=== PATIENT | male | born 1945 | race African-American/Black ===

== ENCOUNTER 2021-01-25 13:30 | Inpatient (IN) | payer MEDICARE, MEDICAID ==
[~2021-01-25] VITALS: Ht 172.7 cm; Wt 84.0 kg
[2021-01-25 14:40] LABS: HEMATOCRIT. 48.5 % (42.0-52.0); HEMOGLOBIN. 15.6 g/dL (14.0-18.0); MEAN CORPUSCULAR HEMOGLOBIN 28.2 pg (28.0-32.0); MEAN PLATELET VOLUME 8.6 fl (7.4-10.4); PLATELET 213 x1000/uL (130-400); RED BLOOD CELL COUNT 5.52 mill/uL (4.7-6.1); RED CELL DISTRIBUTION WIDTH 15.5 % (11.6-14.6)
[2021-01-25 14:46] LABS: CHLORIDE 108 mEq/L (98-107)
[2021-01-25 15:13] LABS: CREATINE KINASE 2217 IU/L (39-308)
[2021-01-25 15:35] LABS: PLATELET ESTIMATE NORMAL
[2021-01-25 15:37] LABS: INR 1.2; PROTHROMBIN TIME 12.4 sec (9.6-11.0)
[2021-01-25] MEDS ORDERED: SODIUM CHLORIDE 0.9% 1,000 ML IV ONE (16:15)
[2021-01-25] MEDS ORDERED: IOHEXOL-300 100 ML BOTTLE ONE (17:02)
[2021-01-25] MEDS ORDERED: MAGNESIUM/ALUMINUM HYDROXIDE/SIMETHICONE 30ML UDC PO PRN (18:45)
[2021-01-25] MEDS ORDERED: ZOLPIDEM TARTRATE 5MG TABLET PO PRN (18:45)
[2021-01-25] MEDS ORDERED: IPRATROPIUM/ALBUTEROL 0.5-3(2.5)MG/3ML NEB NEB PRN (18:45)
[2021-01-25] MEDS ORDERED: NITROGLYCERIN 0.4MG TABLET SL SL PRN (18:45)
[2021-01-25] MEDS ORDERED: GUAIFENESIN 200MG/10ML SUGAR FREE UDC PO PRN (18:45)
[2021-01-25] MEDS ORDERED: ACETAMINOPHEN 325MG TABLET PO PRN (18:45)
[2021-01-25] MEDS ORDERED: DOCUSATE SODIUM 100MG CAPSULE PO PRN (18:45)
[2021-01-25] MEDS ORDERED: NA PHOS,M-B/NA PHOS,DI-BA ENEMA 118ML PR PRN (18:45)
[2021-01-25 19:21] LABS: CLARITY URINE CLEAR (CLEAR); COLOR URINE YELLOW (YELLOW); KETONES URINE 3+ (NEGATIVE); LEUKOCYTE ESTERASE URINE NEGATIVE (NEGATIVE); NITRITE URINE NEGATIVE (NEGATIVE); OCCULT BLOOD URINE 2+ (NEGATIVE); PROTEIN URINE TRACE (NEGATIVE); SPECIFIC GRAVITY URINE 1.073 (1.005-1.030)
[2021-01-25 19:25] LABS: ETHANOL BLOOD < 10 mg/dL
[2021-01-25 19:27] LABS: TOTAL IRON BINDING CAPACITY 258 ug/dL (250-450)
[2021-01-25 19:33] LABS: *AMPHETAMINES SCREEN URINE NEGATIVE (NEGATIVE); *BARBITURATES SCREEN URINE NEGATIVE (NEGATIVE); *BENZODIAZEPINES SCREEN URINE NEGATIVE (NEGATIVE); *COCAINE SCREEN URINE NEGATIVE (NEGATIVE); METHADONE URINE SCREEN NEGATIVE (NEGATIVE); OPIATES URINE SCREEN NEGATIVE (NEGATIVE)
[2021-01-25 19:34] LABS: CANNABINOID URINE SCREEN PRESUMTIVE POSITIVE (NEGATIVE); PHENCYCLIDINE URINE SCREEN NEGATIVE (NEGATIVE)
[2021-01-25 19:42] LABS: FOLIC ACID (FOLATE) SERUM 18.3 ng/mL (>5.38)
[2021-01-25] MEDS: LEVOFLOXACIN 500MG PREMIX 100 ML IV SCH (20:13)
[2021-01-25] MEDS: SODIUM CHLORIDE 0.9% 1,000 ML IV SCH (20:13)
[2021-01-25] MEDS: FAMOTIDINE 20MG TABLET PO SCH (21:15)
[2021-01-25] MEDS: ASCORBIC ACID 500 MG TABLET PO SCH (21:15)
[2021-01-25] MEDS: ENOXAPARIN 40MG/0.4ML SYR SUBCUT SCH (21:15)
[2021-01-26] VITALS (7 sets, daily range): BP systolic 121–179; BP diastolic 65–79
[2021-01-26 00:36] LABS: CREATINE KINASE MB FRACTION 6.7 ng/mL (0.5-3.6)
[2021-01-26] MEDS ORDERED: ASPI-1497 PO (01:15)
[2021-01-26] MEDS ORDERED: PNEUMOCOCCAL 23-VAL P-SAC VAC 0.5 ML IM ONE (02:00)
[2021-01-26] MEDS ORDERED: INFLUENZA VACCINE 05/PF 0.5 ML SYRINGE IM ONE (02:00)
[2021-01-26 06:06] LABS: HEMATOCRIT. 43.6 % (42.0-52.0); HEMOGLOBIN. 14.4 g/dL (14.0-18.0); MEAN CORPUSCULAR VOLUME 87.5 fL (80.0-94.0); MEAN PLATELET VOLUME 8.9 fl (7.4-10.4); PLATELET 178 x1000/uL (130-400); RED BLOOD CELL COUNT 4.98 mill/uL (4.7-6.1)
[2021-01-26] MEDS: SODIUM CHLORIDE 0.9% 1,000 ML IV SCH ×2 (06:15→21:45)
[2021-01-26 06:16] LABS: CHLORIDE 110 mEq/L (98-107)
[2021-01-26 06:27] LABS: PHOSPHORUS 2.3 mg/dL (2.5-4.9)
[2021-01-26 06:34] LABS: CREATINE KINASE MB FRACTION 7.4 ng/mL (0.5-3.6)
[2021-01-26 06:44] LABS: CREATINE KINASE 1445 IU/L (39-308)
[2021-01-26] MEDS: ASPIRIN 325MG EC TABLET PO SCH (09:02)
[2021-01-26] MEDS: CHOLECALCIFEROL (D3) 1000 UNIT TABLET PO SCH (09:02)
[2021-01-26] MEDS: ZINC SULFATE 220 MG ( 50 ) CAPSULE PO SCH (09:02)
[2021-01-26] MEDS: FAMOTIDINE 20MG TABLET PO SCH ×2 (09:03→21:45)
[2021-01-26] MEDS: ASCORBIC ACID 500 MG TABLET PO SCH ×2 (09:03→21:43)
[2021-01-26 13:04] LABS: PLATELET ESTIMATE NORMAL
[2021-01-26] MEDS: ONDANSETRON HCL 4MG/2ML INJ IV PRN (13:52)
[2021-01-26] MEDS: NITROGLYCERIN OINT 1GM/INCH UDPKT TD SCH ×2 (13:56→21:43)
[2021-01-26] MEDS: ENOXAPARIN 40MG/0.4ML SYR SUBCUT SCH (21:44)
[2021-01-26] MEDS: LEVOFLOXACIN 500MG PREMIX 100 ML IV SCH (22:30)
[2021-01-27] VITALS: BP 166/65
[2021-01-27] MEDS: CLONIDINE 0.1MG TABLET PO PRN ×2 (00:13→14:49)
[2021-01-27] MEDS: LEVOFLOXACIN 500MG PREMIX 100 ML IV SCH ×3 (00:14→20:25)
[2021-01-27 04:00] VITALS: BP 127/70
[2021-01-27 08:00] VITALS: BP 160/71
[2021-01-27] MEDS: CHOLECALCIFEROL (D3) 1000 UNIT TABLET PO SCH (09:37)
[2021-01-27] MEDS: SODIUM CHLORIDE 0.9% 1,000 ML IV SCH ×3 (09:37→20:24)
[2021-01-27] MEDS: NITROGLYCERIN OINT 1GM/INCH UDPKT TD SCH ×2 (09:37→17:15)
[2021-01-27] MEDS: ACETAMINOPHEN 325MG TABLET PO PRN ×2 (09:38→19:23)
[2021-01-27] MEDS: ASCORBIC ACID 500 MG TABLET PO SCH ×2 (09:38→20:24)
[2021-01-27] MEDS: ASPIRIN 325MG EC TABLET PO SCH (09:38)
[2021-01-27] MEDS: FAMOTIDINE 20MG TABLET PO SCH ×2 (09:41→20:24)
[2021-01-27] MEDS: ZINC SULFATE 220 MG ( 50 ) CAPSULE PO SCH (09:41)
[2021-01-27 12:00] VITALS: BP 160/68
[2021-01-27 16:00] VITALS: BP_SYST 198
[2021-01-27] MEDS: HYDRALAZINE 20MG/ML VIAL IV PRN (19:23)
[2021-01-27 20:00] VITALS: BP 176/86
[2021-01-27] MEDS: ENOXAPARIN 40MG/0.4ML SYR SUBCUT SCH (20:24)
[2021-01-28] VITALS: BP 101/66
[2021-01-28 04:00] VITALS: BP 135/66
[2021-01-28 06:54] LABS: HEMATOCRIT. 44.9 % (42.0-52.0); MEAN CORPUSCULAR HEMOGLOBIN 28.7 pg (28.0-32.0); MEAN CORPUSCULAR VOLUME 85.7 fL (80.0-94.0); MEAN PLATELET VOLUME 9.3 fl (7.4-10.4); PLATELET 179 x1000/uL (130-400); RED BLOOD CELL COUNT 5.24 mill/uL (4.7-6.1)
[2021-01-28 07:12] LABS: CHLORIDE 110 mEq/L (98-107)
[2021-01-28 07:21] LABS: PHOSPHORUS 1.8 mg/dL (2.5-4.9)
[2021-01-28 07:24] LABS: CREATINE KINASE 969 IU/L (39-308)
[2021-01-28 08:00] VITALS: BP 147/102
[2021-01-28] MEDS: CHOLECALCIFEROL (D3) 1000 UNIT TABLET PO SCH (08:33)
[2021-01-28] MEDS: ACETAMINOPHEN 325MG TABLET PO PRN ×2 (08:33→17:27)
[2021-01-28] MEDS: ASPIRIN 325MG EC TABLET PO SCH (08:33)
[2021-01-28] MEDS: FAMOTIDINE 20MG TABLET PO SCH ×2 (08:33→21:06)
[2021-01-28] MEDS: ASCORBIC ACID 500 MG TABLET PO SCH ×2 (08:33→21:06)
[2021-01-28] MEDS: ZINC SULFATE 220 MG ( 50 ) CAPSULE PO SCH (08:33)
[2021-01-28] MEDS: NITROGLYCERIN OINT 1GM/INCH UDPKT TD SCH ×2 (08:34→17:26)
[2021-01-28] MEDS: SODIUM CHLORIDE 0.9% 1,000 ML IV SCH ×2 (08:39→18:59)
[2021-01-28] MEDS: TRAMADOL 50MG TABLET PO PRN (11:44)
[2021-01-28] MEDS: HYDRALAZINE 20MG/ML VIAL IV PRN (11:52)
[2021-01-28 12:00] VITALS: BP 163/77
[2021-01-28 13:55] LABS: PLATELET ESTIMATE NORMAL
[2021-01-28 16:00] VITALS: BP 195/89
[2021-01-28] MEDS: CLONIDINE 0.1MG TABLET PO PRN (17:26)
[2021-01-28 20:00] VITALS: BP 149/74
[2021-01-28] MEDS: ENOXAPARIN 40MG/0.4ML SYR SUBCUT SCH (21:06)
[2021-01-28] MEDS: LEVOFLOXACIN 500MG PREMIX 100 ML IV SCH (21:06)
[2021-01-28 21:48] LABS: CLARITY URINE CLEAR (CLEAR); COLOR URINE DARK YELLOW (YELLOW); KETONES URINE 2+ (NEGATIVE); LEUKOCYTE ESTERASE URINE NEGATIVE (NEGATIVE); NITRITE URINE NEGATIVE (NEGATIVE); OCCULT BLOOD URINE 1+ (NEGATIVE); PH URINE 5.5 (4.5-8.0); PROTEIN URINE 1+ (NEGATIVE); SPECIFIC GRAVITY URINE 1.028 (1.005-1.030)
[2021-01-28] MEDS ORDERED: NALOXONE HCL 0.4MG/ML VIAL IV PRN (22:15)
[2021-01-29] VITALS: BP 126/81
[2021-01-29] MEDS: ACETAMINOPHEN 325MG TABLET PO PRN (00:48)
[2021-01-29 04:00] VITALS: BP 126/81
[2021-01-29] MEDS: TRAMADOL 50MG TABLET PO PRN ×2 (05:51→13:48)
[2021-01-29] MEDS: SODIUM CHLORIDE 0.9% 1,000 ML IV SCH ×2 (05:51→13:43)
[2021-01-29 08:00] VITALS: BP 218/103
[2021-01-29] MEDS: HYDRALAZINE 20MG/ML VIAL IV PRN (08:26)
[2021-01-29] MEDS: ASPIRIN 325MG EC TABLET PO SCH (08:28)
[2021-01-29] MEDS: ASCORBIC ACID 500 MG TABLET PO SCH ×2 (08:29→20:50)
[2021-01-29] MEDS: NITROGLYCERIN OINT 1GM/INCH UDPKT TD SCH ×2 (08:29→17:07)
[2021-01-29] MEDS: CHOLECALCIFEROL (D3) 1000 UNIT TABLET PO SCH (08:29)
[2021-01-29] MEDS: FAMOTIDINE 20MG TABLET PO SCH ×2 (08:29→20:50)
[2021-01-29] MEDS: ZINC SULFATE 220 MG ( 50 ) CAPSULE PO SCH (08:29)
[2021-01-29] MEDS: ONDANSETRON HCL 4MG/2ML INJ IV PRN (10:02)
[2021-01-29] MEDS: TAMSULOSIN HCL 0.4MG SR CAPSULE PO SCH (10:02)
[2021-01-29] MEDS: CLONIDINE 0.1MG TABLET PO PRN ×2 (10:02→20:51)
[2021-01-29] MEDS: AMLODIPINE 10MG TABLET PO SCH (11:23)
[2021-01-29] MEDS: DUTASTERIDE 0.5MG CAPSULE PO SCH (11:23)
[2021-01-29 12:00] VITALS: BP 146/80
[2021-01-29 16:00] VITALS: BP 148/69
[2021-01-29 20:00] VITALS: BP 162/76
[2021-01-29] MEDS: ENOXAPARIN 40MG/0.4ML SYR SUBCUT SCH (20:50)
[2021-01-29] MEDS: LEVOFLOXACIN 500MG PREMIX 100 ML IV SCH (20:50)
[2021-01-30] VITALS: BP 133/71
[2021-01-30 04:00] VITALS: BP 149/74
[2021-01-30 08:00] VITALS: BP 145/116
[2021-01-30] MEDS: ZINC SULFATE 220 MG ( 50 ) CAPSULE PO SCH (09:25)
[2021-01-30] MEDS: TAMSULOSIN HCL 0.4MG SR CAPSULE PO SCH (09:27)
[2021-01-30] MEDS: ASPIRIN 325MG EC TABLET PO SCH (09:27)
[2021-01-30] MEDS: DUTASTERIDE 0.5MG CAPSULE PO SCH (09:27)
[2021-01-30] MEDS: TRAMADOL 50MG TABLET PO PRN (09:28)
[2021-01-30] MEDS: ASCORBIC ACID 500 MG TABLET PO SCH (09:28)
[2021-01-30] MEDS: AMLODIPINE 10MG TABLET PO SCH (09:28)
[2021-01-30] MEDS: CHOLECALCIFEROL (D3) 1000 UNIT TABLET PO SCH (09:28)
[2021-01-30] MEDS: NITROGLYCERIN OINT 1GM/INCH UDPKT TD SCH (09:29)
[2021-01-30] MEDS: FAMOTIDINE 20MG TABLET PO SCH (09:29)
[2021-01-30] MEDS ORDERED: NITROFURANTOIN 100MG M/M CAPSULE PO SCH (10:00)
[2021-01-30 12:00] VITALS: BP 135/84
[2021-01-30 16:00] VITALS: BP 152/84
[2021-01-30] MEDS: CLONIDINE 0.1MG TABLET PO PRN (17:16)
[2021-01-30] MEDS: ACETAMINOPHEN 325MG TABLET PO PRN (17:16)
[2021-01-30 20:00] VITALS: BP 137/77
== END 2021-01-30 21:16 | disposition home health service (06) | DRG 872 ==
LOC: ER 13:42 → 8WST 17:41 → EDBEDREQTM 17:44 → EDBEDREQ 17:44 → SUPCPDRO 19:04 → ENRESERV 21:10
PROVIDERS: ADMIT Internal Medicine; ATTEND Internal Medicine
DX: A41.9 Sepsis, unspecified organism (principal); M62.82 Rhabdomyolysis; R55 Syncope and collapse; I10 Essential (primary) hypertension; E80.4 Gilbert syndrome; M54.9 Dorsalgia, unspecified; E80.6 Other disorders of bilirubin metabolism; S09.90XA Unspecified injury of head, initial encounter; W18.39XA Other fall on same level, initial encounter; Y93.89 Activity, other specified; Y92.89 Other specified places as the place of occurrence of the external cause; Y99.8 Other external cause status
CPT/HCPCS: 36415; 71045; 72148; 74177; 80053; 80305; 80320; 81003; 82550; 82553; 82607; 82746; 82962; 83540; 83550; 83605; 83735; 83880; 84100; 84443; 84484; 85025; 87070; 90686; 90732; 93005; 93306; 93970; 97116; 97162; 97166; 97530; 99291; C1893; J0360; J1650; J1956; J2405; J7030; J7040; Q9967; G0480